=== PATIENT | female | born 1940 | race Caucasian/White ===

== ENCOUNTER 2019-04-02 20:09 | Emergency (ER) | payer MEDICARE ==
[2019-04-02] MEDS ORDERED: Ativan 2 MG/1 ML VIAL ONE (20:57)
[2019-04-02 21:24] LABS: Appearance TURBID (CLEAR); Bacteria MANY /HPF (NEGATIVE); Bilirubin NEGATIVE (NEGATIVE); Blood MODERATE Ery/ul (0-5); Glucose NEGATIVE (NEGATIVE); Ketones NEGATIVE (NEGATIVE); Leukocyte Esterase MODERATE (NEGATIVE); Mucus SLIGHT /HPF (NEGATIVE); Nitrite POSITIVE (NEGATIVE); Non-Squamous Epithelial Cells RARE /HPF (FEW); Protein,Urine Dip 30 (Negative); RBC 26-50 /HPF (0-2); Specific Gravity 1.015 (1.005-1.025); Urobilinogen NEGATIVE mg/dL (0-1); WBC >100 /HPF (0-5)
[2019-04-02 21:42] LABS: BASOPHIL % 0.4 % (0.0-0.4); Basophil (Absolute #) 0.04 (0-0.4); Eosinophil (Absolute #) 0.32 (0-0.5); Granulocytes % 79.7 % (36.0-66.0); Hematocrit 38.3 % (35-47); Hemoglobin 11.9 gm/dl (12.0-16.0); Lymphocyte (Absolute #) 1.12 (1.0-4.6); Lymphocytes % 10.5 % (24.0-44.0); Mean Cell Volume 93.9 fl (78-100); Mean Corpuscular Hgb Concent. 31.1 g/dl (32-36); Mean Platelet Volume 9.2 fl (6-9.5); Monocyte (Absolute #) 0.68 (0.0-1.3); Monocytes % 6.4 % (0.0-12.0); Platelet Count 302 K/mm3 (150-450); Red Blood Count 4.08 M/mm3 (4.1-5.4); Red Cell Distribution Width 18.6 % (11.5-14.0); White Blood Count 10.7 K/mm3 (4.0-10.5)
[2019-04-02 21:43] LABS: Mean Corpuscular Hemoglobin 29.1 pg (26-32)
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
[2019-04-02 21:52] LABS: ALBUMIN 3.6 g/dL (3.5-5.0); ALKALINE PHOSPHATASE 103 U/L (38-126); ANION GAP 12.2 MEQ/L (5-15); BLOOD UREA NITROGEN 19 mg/dL (7-17); CHLORIDE 104 mmol/L (98-107); Carbon Dioxide 27 mmol/L (22-30); Creatinine 1 0.93 mg/dL (0.52-1.04); Glucose 146 mg/dL (74-106); Potassium 3.9 mmol/L (3.5-5.1); SGOT/AST 11 U/L (14-36); SGPT/ALT 11 U/L (0-35); SODIUM 140 mmol/L (137-145); Total Protein 7.5 g/dL (6.3-8.2)
[2019-04-02] MEDS ORDERED: ROCEPHIN 1 Gm-D5w 50 ml Bag** 1 G/50 ML IVPB IV ONE (23:06)
[2019-04-02] MEDS: ROCEPHIN 1 Gm-D5w 50 ml Bag** 1 G/50 ML IVPB IV STA (23:10)
[2019-04-02] MEDS: Ativan 2 MG/1 ML VIAL IV ONE (23:10)
[2019-04-03 02:47] VITALS: BP 122/73; O2SAT 99
[2019-04-03 02:48] VITALS: PULSE 105
--- NOTE | 2019-04-03 09:15 | XRAY ---
Indication: Seizure. Possible stroke. Multiple contiguous axial images obtained through the head without contrast. Comparison: None Several images especially through the base of the brain degraded by motion artifact. Age-appropriate global atrophy and degenerative micro-ischemia. There are large multifocal old cerebral infarcts, left greater than right. No acute intracranial hemorrhage, mass effect, or hydrocephalus. Bony calvarium demonstrates previous right temporoparietal craniotomy. Visualized paranasal sinuses and mastoid air cells are clear. Impression: 1. Motion artifact. 2. Atrophy, degenerative micro-ischemia, and multifocal cerebral infarcts. Outside comparison studies would be of benefit if available. 3. No gross acute intracranial abnormalities. CTDI 65.91
--- NOTE | 2019-04-03 09:23 | XRAY ---
Indication: Abdomen pain. Multiple contiguous axial images obtained through the abdomen and pelvis without contrast as ordered. Comparison: None Lung bases/upper abdomen is slightly degraded by respiration artifact. Lung bases demonstrates mild scattered subsegmental atelectasis/scarring. No consolidation or effusion. Heart is enlarged with small pericardial effusion. Small hiatal hernia. Stomach is distended with food/fluid. Noncontrasted stomach and bowel loops appear nonobstructed. Normal appendix. Mild diffuse scattered colonic fecal debris throughout including large rectal impaction. Scattered colonic diverticulosis, greatest in the descending and sigmoid. Urinary bladder is empty with Anguiano balloon catheter in situ. Left kidney is moderately hydronephrotic with focus of UPJ stricture/tiny calcification. There are multiple bilateral renal cysts, largest right midpole measuring 1.8 cm. Also a few bilateral renal micro-calculi, largest left upper pole measuring 4 mm. Previous reported cholecystectomy and hysterectomy. No free fluid/air. Incidental 2.7 cm left adrenal adenoma. Remaining liver, pancreas, spleen, adrenal gland, kidneys, ureters, and bladder are unremarkable for noncontrast exam. Mild scattered aortoiliac calcifications without AAA. Osseous structures intact with mild osteopenia and mild/moderate multilevel thoracolumbar degenerative spondylosis. Impression: 1. Fecal stasis with rectal impaction. Also diffuse colonic diverticulosis without diverticulitis. 2. Hydronephrotic left kidney with UPJ stricture/tiny calcification. Also bilateral renal cysts/micro-calculi and Anguiano catheter in situ. 3. Incidental small hiatal hernia, left adrenal adenoma, and cardiomegaly with pericardial effusion. Comment: Preliminary interpretation was made by [facility]. No critical discrepancy. CT DI 22.28
== END 2019-04-03 02:32 | disposition home or self-care (01) ==
LOC: ED 20:09
DX: G40.909 Epilepsy, unspecified, not intractable, without status epilepticus (principal); N39.0 Urinary tract infection, site not specified; N13.30 Unspecified hydronephrosis; E11.9 Type 2 diabetes mellitus without complications; E05.90 Thyrotoxicosis, unspecified without thyrotoxic crisis or storm; J44.9 Chronic obstructive pulmonary disease, unspecified
CPT/HCPCS: 36000; 36415; 70450; 74176; 80053; 81001; 85025; 87040; 87077; 87086; 87186; 93005; 96365; 96374; 99284; J0696; J2060

== ENCOUNTER 2019-12-25 13:08 | Emergency (ER) | payer MEDICARE ==
[2019-12-25] MEDS ORDERED: Pepcid 20 MG VIAL IV ONE ×2 (13:11→13:23)
--- NOTE | 2019-12-25 13:20 | ERPHSYRPT ---
- History of Present Illness Time Seen by Provider: 12/25/19 13:10 Source: patient, EMS, care home records Exam Limitations: clinical condition Physician History: Patient is here with altered mental status from a care home. Patient is confused, opens eyes to verbal stimuli only. Intermittently follows directions. Per the care home, patient more confused over the past few days. Had a seizure 4 days ago. She has been on Keppra since that time. The care home feels that she has never returned to her baseline. Per them, they did a in-house hemoglobin at the care home. This returned with a hemoglobin of 5. Patient hypotensive upon arrival to the emergency department. They are unaware of any falls, this is a new seizure history. Patient does have a history of a CVA with continued deficit. Location: Generalized Quality: Infusion, low hemoglobin Radiation: None Severity: moderate Duration: 4 days Timing: occurred after seizure 4 days ago Modifying factors/associated signs and symptoms: started on Keppra recently Timing/Duration: today Severity: moderate Allergies/Adverse Reactions: Penicillins Allergy (Verified 04/02/19 21:45) Sulfa (Sulfonamide Antibiotics) Allergy (Verified 04/02/19 21:45) Home Medications: Acetaminophen 325 mg [Tylenol 325 mg] 2 tab PO BID PRN 12/25/19 [History] Allopurinol 100 mg [Zyloprim 100 mg] 1 tab PO BID 12/25/19 [History] Apixaban [Eliquis] 1 tab PO BID 12/25/19 [History] Aspirin 81 gm Chew [Baby Aspirin 81 mg Chew] 12/25/19 [History] Aspirin 81 gm Chew [Baby Aspirin 81 mg Chew] 1 tab PO DAILY 12/25/19 [ History] Carvedilol 12.5 mg [Coreg 12.5 mg] 1 tab PO BID 12/25/19 [History] Clonidine HCl 1 tab PO DAILY 12/25/19 [History] Fluoxetine HCl 20 mg [Prozac 20 MG] 20 mg PO DAILY 12/25/19 [History] HydrALAzine HCL 25 MG TAB [Apresoline 25 MG TABLET] 1 tab PO BID 12/25/19 [History] Levetiracetam 250 MG [Keppra 250 MG] 1 tab PO BID 12/25/19 [History] Levothyroxine Sodium 100 Mcg [Synthroid 100 Mcg] 100 mcg PO DAILY 12/25/19 [History] Lorazepam [Ativan] 0.5 mg PO TID 12/25/19 [History] Losartan Potassium 50 mg [Cozaar 50 MG] 50 mg PO DAILY 12/25/19 [History] Omeprazole Magnesium [Prilosec Otc] 1 cap PO DAILY 12/25/19 [History] Paliperidone [Paliperidone ER] 1 tab PO DAILY 12/25/19 [History] Polyethylene Glycol 3350 [Glycolax] 17 gr PO DAILY 12/25/19 [History] Rivastigmine 9.5 mg TD DAILY 12/25/19 [History] Sitagliptin Phosphate [Januvia] 25 mg PO DAILY 12/25/19 [History] Trazodone HCl 100 mg PO HS 12/25/19 [History] cloNIDine HCL [Clonidine HCl] 1 tab PO HS 12/25/19 [History] - Review of Systems Constitutional: Other (Possibly low hemoglobin, more pale), No Fever, No Chills Eyes: No Symptoms Ears, Nose, & Throat: No Symptoms Respiratory: No Cough, No Dyspnea Cardiac: No Chest Pain, No Edema, No Syncope Abdominal/Gastrointestinal: No Abdominal Pain, No Nausea, No Vomiting, No Diarrhea Genitourinary Symptoms: No Dysuria Musculoskeletal: No Back Pain, No Neck Pain Skin: No Rash Neurological: Other (Generalized confusion), No Dizziness, No Focal Weakness, No Sensory Changes Psychological: No Symptoms Endocrine: No Symptoms All Other Systems: Reviewed and Negative - Past Medical History Pertinent Past Medical History: Yes Neurological History: Seizures, Stroke ENT History: No Pertinent History Cardiac History: Arrhythmia, Other Respiratory History: COPD Endocrine Medical History: Diabetes Type II, Hyperthyroidism Musculoskeletal History: Arthritis GI Medical History: Gallbladder Disease History: No Pertinent History Psycho-Social History: Anxiety, Depression, Panic Disorder Female Reproductive Disorders: Endometriosis, Fibroids Other Medical History: GOUT - Past Surgical History Past Surgical History: Yes Neuro Surgical History: Other Cardiac: No Pertinent History Respiratory: No Pertinent History Gastrointestinal: Cholecystectomy Genitourinary: Other Musculoskeletal: No Pertinent History Female Surgical History: Hysterectomy Other Surgical History: kidney stones with nephrostomy tube placement, lithotripsy, craniotomy due to subdural hematoma. - Social History Smoking Status: Former smoker Drug Use: none - Nursing Vital Signs Nursing Vital Signs: Initial Vital Signs Temperature 97.0 F 12/25/19 13:26 Pulse Rate 84 12/25/19 13:26 Respiratory Rate 14 12/25/19 13:26 Blood Pressure 84/58 12/25/19 13:26 O2 Sat by Pulse Oximetry 96 12/25/19 13:26 - Physical Exam General Appearance: no apparent distress, alert Eye Exam: PERRL/EOMI, eyes nml inspection Ears, Nose, Throat Exam: normal ENT inspection, TMs normal, pharynx normal, moist mucous membranes Neck Exam: normal inspection, non-tender, supple, full range of motion Respiratory Exam: normal breath sounds, lungs clear, No respiratory distress Cardiovascular Exam: regular rate/rhythm, normal heart sounds, normal peripheral pulses Gastrointestinal/Abdomen Exam: soft, normal bowel sounds, No tenderness, No mass Back Exam: normal inspection, normal range of motion, No CVA tenderness, No vertebral tenderness Extremity Exam: normal inspection, normal range of motion, pelvis stable Neurologic Exam: alert, No motor deficits Skin Exam: normal color, warm, dry, No rash Lymphatic Exam: No adenopathy SpO2 Interpretation: normal Comments: 12/25/19 13:21 Patient is confused on exam. Opens eyes only to voice. Otherwise they are closed. Patient does appear pale. Neurological exam: Patient is moving all 4 extremities. Is unclear where her previous deficit is from. I did do a rectal exam. This demonstrated no gross blood. No bright red blood. No abdominal tenderness, rebound, guarding. Patient intermittently is following direction. - Course Nursing assessment & vital signs reviewed: Yes Ordered Tests: Active Orders 24 hr Category Date Time Status Supervisor Locomotive STAT Care 12/25/19 13:12 Active Anguiano [Catheter-[place] Anguiano] STAT Care 12/25/19 13:23 Active IV Insertion STAT Care 12/25/19 13:11 Active IV Insertion-2nd Peripheral STAT Care 12/25/19 13:11 Active Pulse Oximetry (ED) STAT Care 12/25/19 13:11 Active CHEST 1 VIEW (PORTABLE) Stat Exams 12/25/19 13:12 Completed BLOOD CULTURE Stat Lab 12/25/19 13:50 Received CBC W DIFF Stat Lab 12/25/19 13:11 Completed CMP Stat Lab 12/25/19 13:10 Completed CULTURE,URINE Stat Lab 12/25/19 13:00 Received CULTURE,URINE Stat Lab 12/25/19 13:22 Ordered Lactic Acid Stat Lab 12/25/19 13:40 Completed Occult Blood, Other Screening Stat Lab 12/25/19 13:00 Completed PROTIME WITH INR Stat Lab 12/25/19 13:10 Completed PTT Stat Lab 12/25/19 13:10 Completed TROPONIN Q3H Lab 12/25/19 13:10 Completed TROPONIN Q3H Lab 12/25/19 16:15 Ordered TROPONIN Q3H Lab 12/25/19 19:15 Ordered TROPONIN Q3H Lab 12/25/19 22:15 Ordered UA W/RFX UR CULTURE Stat Lab 12/25/19 13:00 Completed EKG STAT RT 12/25/19 13:20 Active Medication Summary Generic Name Dose Route Start Last Admin Trade Name Freq PRN Reason Stop Dose Admin Sodium Chloride 1,000 mls @ 100 mls/hr 12/25/19 14:00 Sodium Chloride 0.9% 1000 Ml IV 01/24/20 13:59 .Q10H ELIZABETH Discontinued Medications Generic Name Dose Route Start Last Admin Trade Name Freq PRN Reason Stop Dose Admin Famotidine 20 mg 12/25/19 13:11 12/25/19 13:25 Pepcid 20 Mg Vial IV 12/25/19 13:12 20 mg STAT ONE Administration Famotidine Confirm 12/25/19 13:23 Pepcid 20 Mg Vial Administered 12/25/19 13:24 Dose 20 mg IV .STK-MED ONE Sodium Chloride 1,000 mls @ 999 mls/hr 12/25/19 13:11 12/25/19 14:17 Sodium Chloride 0.9% 1000 Ml IV 12/25/19 14:11 999 mls/hr .Q1H1M STA Administration Sodium Chloride Confirm 12/25/19 13:23 Sodium Chloride 0.9% 1000 Ml Administered 12/25/19 13:24 Dose 1,000 mls @ ud .ROUTE .STK-MED ONE Lab/Rad Data: Laboratory Result Diagrams 12/25/19 13:11 12/25/19 13:10 Laboratory Results 04/24/20 04/24/20 04/24/20 Range/Units 13:40 13:11 13:10 WBC 7.9 (4.0-10.5) K/mm3 RBC 2.94 L (4.1-5.4) M/mm3 Hgb 6.0 L* (12.0-16.0) gm/dl Hct 24.5 L (35-47) % MCV 83.3 (78-100) fl MCH 20.4 L (26-32) pg MCHC 24.5 L (32-36) g/dl RDW 21.7 H (11.5-14.0) % Plt Count 428 (150-450) K/mm3 MPV 8.3 (7.5-11.0) fl Gran % 68.6 H (36.0-66.0) % Eos # (Auto) 0.17 (0-0.5) Absolute Lymphs (auto) 1.58 (1.0-4.6) Absolute Monos (auto) 0.67 (0.0-1.3) Lymphocytes % 20.1 L (24.0-44.0) % Monocytes % 8.5 (0.0-12.0) % Eosinophils % 2.2 (0.00-5.0) % Basophils % 0.6 (0.0-0.4) % Absolute Granulocytes 5.39 (1.4-6.9) Basophils # 0.05 (0-0.4) PT (9.95-12.35) SECONDS INR (0.8-3.0) APTT (25.3-37.0) SECONDS Sodium (137-145) mmol/L Potassium (3.5-5.1) mmol/L Chloride (98-107) mmol/L Carbon Dioxide (22-30) mmol/L Anion Gap (5-15) MEQ/L BUN (7-17) mg/dL Creatinine (0.52-1.04) mg/dL Estimated GFR ML/MIN Glucose (74-106) mg/dL Lactic Acid 1.0 (0.4-2.0) Calcium (8.4-10.2) mg/dL Total Bilirubin (0.2-1.3) mg/dL AST (14-36) U/L ALT (0-35) U/L Alkaline Phosphatase (38-126) U/L Troponin I < 0.012 (0.000-0.034) ng/mL Serum Total Protein (6.3-8.2) g/dL Albumin (3.5-5.0) g/dL Urine Color (YELLOW) Urine Appearance (CLEAR) Urine pH (5-6) Ur Specific [place] (1.005-1.025) Urine Protein (Negative) Urine Ketones (NEGATIVE) Urine Blood (0-5) Sajan/ul Urine Nitrite (NEGATIVE) Urine Bilirubin (NEGATIVE) Urine Urobilinogen (0-1) mg/dL Ur Leukocyte Esterase (NEGATIVE) Urine WBC (Auto) (0-5) /HPF Urine RBC (Auto) (0-2) /HPF U Epithel Cells (Auto) (FEW) /HPF Urine Bacteria (Auto) (NEGATIVE) /HPF Urine Mucus (Auto) (NEGATIVE) /HPF Urine Culture Reflexed (NO) Urine Glucose (NEGATIVE) mg/dL Stool Occult Blood (Negative) 12/25/19 12/25/19 12/25/19 Range/Units 13:10 13:10 13:00 WBC (4.0-10.5) K/mm3 RBC (4.1-5.4) M/mm3 Hgb (12.0-16.0) gm/dl Hct (35-47) % MCV (78-100) fl MCH (26-32) pg MCHC (32-36) g/dl RDW (11.5-14.0) % Plt Count (150-450) K/mm3 MPV (7.5-11.0) fl Gran % (36.0-66.0) % Eos # (Auto) (0-0.5) Absolute Lymphs (auto) (1.0-4.6) Absolute Monos (auto) (0.0-1.3) Lymphocytes % (24.0-44.0) % Monocytes % (0.0-12.0) % Eosinophils % (0.00-5.0) % Basophils % (0.0-0.4) % Absolute Granulocytes (1.4-6.9) Basophils # (0-0.4) PT 26.0 H (9.95-12.35) SECONDS INR 2.26 (0.8-3.0) APTT 34.5 (25.3-37.0) SECONDS Sodium 140 (137-145) mmol/L Potassium 3.7 (3.5-5.1) mmol/L Chloride 106 (98-107) mmol/L Carbon Dioxide 27 (22-30) mmol/L Anion Gap 10.5 (5-15) MEQ/L BUN 15 (7-17) mg/dL Creatinine 0.59 (0.52-1.04) mg/dL Estimated GFR > 60.0 ML/MIN Glucose 102 (74-106) mg/dL Lactic Acid (0.4-2.0) Calcium 8.5 (8.4-10.2) mg/dL Total Bilirubin 0.60 (0.2-1.3) mg/dL AST 18 (14-36) U/L ALT 9 (0-35) U/L Alkaline Phosphatase 91 (38-126) U/L Troponin I (0.000-0.034) ng/mL Serum Total Protein 6.3 (6.3-8.2) g/dL Albumin 3.0 L (3.5-5.0) g/dL Urine Color YELLOW (YELLOW) Urine Appearance CLOUDY (CLEAR) Urine pH 7.0 (5-6) Ur Specific [place] 1.012 (1.005-1.025) Urine Protein NEGATIVE (Negative) Urine Ketones NEGATIVE (NEGATIVE) Urine Blood NEGATIVE (0-5) Sajan/ul Urine Nitrite NEGATIVE (NEGATIVE) Urine Bilirubin NEGATIVE (NEGATIVE) Urine Urobilinogen 4 (0-1) mg/dL Ur Leukocyte Esterase LARGE (NEGATIVE) Urine WBC (Auto) >100 (0-5) /HPF Urine RBC (Auto) 6-10 (0-2) /HPF U Epithel Cells (Auto) RARE (FEW) /HPF Urine Bacteria (Auto) MANY (NEGATIVE) /HPF Urine Mucus (Auto) SLIGHT (NEGATIVE) /HPF Urine Culture Reflexed ORDERED SEPARATELY (NO) Urine Glucose NEGATIVE (NEGATIVE) mg/dL Stool Occult Blood (Negative) 12/25/19 Range/Units 13:00 WBC (4.0-10.5) K/mm3 RBC (4.1-5.4) M/mm3 Hgb (12.0-16.0) gm/dl Hct (35-47) % MCV (78-100) fl MCH (26-32) pg MCHC (32-36) g/dl RDW (11.5-14.0) % Plt Count (150-450) K/mm3 MPV (7.5-11.0) fl Gran % (36.0-66.0) % Eos # (Auto) (0-0.5) Absolute Lymphs (auto) (1.0-4.6) Absolute Monos (auto) (0.0-1.3) Lymphocytes % (24.0-44.0) % Monocytes % (0.0-12.0) % Eosinophils % (0.00-5.0) % Basophils % (0.0-0.4) % Absolute Granulocytes (1.4-6.9) Basophils # (0-0.4) PT (9.95-12.35) SECONDS INR (0.8-3.0) APTT (25.3-37.0) SECONDS Sodium (137-145) mmol/L Potassium (3.5-5.1) mmol/L Chloride (98-107) mmol/L Carbon Dioxide (22-30) mmol/L Anion Gap (5-15) MEQ/L BUN (7-17) mg/dL Creatinine (0.52-1.04) mg/dL Estimated GFR ML/MIN Glucose (74-106) mg/dL Lactic Acid (0.4-2.0) Calcium (8.4-10.2) mg/dL Total Bilirubin (0.2-1.3) mg/dL AST (14-36) U/L ALT (0-35) U/L Alkaline Phosphatase (38-126) U/L Troponin I (0.000-0.034) ng/mL Serum Total Protein (6.3-8.2) g/dL Albumin (3.5-5.0) g/dL Urine Color (YELLOW) Urine Appearance (CLEAR) Urine pH (5-6) Ur Specific [place] (1.005-1.025) Urine Protein (Negative) Urine Ketones (NEGATIVE) Urine Blood (0-5) Sajan/ul Urine Nitrite (NEGATIVE) Urine Bilirubin (NEGATIVE) Urine Urobilinogen (0-1) mg/dL Ur Leukocyte Esterase (NEGATIVE) Urine WBC (Auto) (0-5) /HPF Urine RBC (Auto) (0-2) /HPF U Epithel Cells (Auto) (FEW) /HPF Urine Bacteria (Auto) (NEGATIVE) /HPF Urine Mucus (Auto) (NEGATIVE) /HPF Urine Culture Reflexed (NO) Urine Glucose (NEGATIVE) mg/dL Stool Occult Blood POSITIVE A (Negative) - Progress Progress: improved Progress Note: 12/25/19 13:22 There is a wide differential diagnosis including upper or lower GI bleed, anemia of chronic disease, Keppra overdose, STEMI, infection, pneumonia, influenza, head bleed. - We'll obtain basic labs, fluids, EKG, troponin, chest x-ray, type and screen, blood transfusion - I feel comfortable with one time negative troponin given symptoms have improved and started greater then 6 hours ago. - EKG shows no ST changes - my read. See full read below. - O2 saturations consistently greater than 95%. - CXR shows no pneumonia, pneumothorax - my read ED critical care statement As staff physician, I have provided critical care. Time: 60 mins Criteria for critical illness: Lower GI bleed, hypotension requiring blood transfusion, hemoglobin less than 7 requiring blood transfusion Treatment and management provided include: Coordination of management with ETC care team, consultants, and inpatient care team. [id number] assessment of condition and response to therapy. Review and interpretation of emergent diagnostic testing. Medical chart review and completion. Direction and immediate supervision of the following therapy: Critical care was time spent personally by me on the following activities: blood draw for specimens, development of treatment plan with patient or surrogate, discussions with consultants, discussions with primary provider, interpretation of cardiac output measurements, evaluation of patient' s response to treatment, examination of patient, obtaining history from patient or surrogate, ordering and performing treatments and interventions, ordering and review of laboratory studies, ordering and review of radiographic studies, pulse oximetry, re-evaluation of patient's condition and review of old charts. This time was independent of all procedures performed. Denis Koenig 12/25/19 14:23 Patient found to have a hemoglobin of 6.0. Hypotension, therefore we will give rapid O- blood. No other obvious source of blood outside of lower GI. Patient is on Eliquis for her A. fib. Patient will need to be transferred emergently to [facility] for GI work-up and possible scope given her tenuous hemodynamic status. I did discuss over the phone with on-call physician, Dr. Yeboah. He is the ER physician. Accepted the patient for ER to ER transfer. Patient transferred without difficulty. Counseled pt/family regarding: lab results, diagnosis - Departure Departure Disposition: Home, Transfer Clinical Impression: Lower GI bleed, Hypotension, Anemia due to acute blood loss Condition: Stable Critical Care Time: Yes Critical Care Time(excluding separately billable procedures): Critical 30-74 mins Referrals: FERNANDO CARRASQUILLO [Primary Care Provider] -
[2019-12-25] MEDS ORDERED: Sodium Chloride 0.9% 1000 ML 1,000 ML ONE ×2 (13:23→13:58)
[2019-12-25] MEDS: Sodium Chloride 0.9% 1000 ML 1,000 ML IV STA ×3 (13:25→14:17)
--- NOTE | 2019-12-25 13:39 | XRAY ---
Indication: Unresponsive. Lethargy. Comparison: None Portable chest slightly underinflated with minimal bibasilar infiltrates/atelectasis and cardiomegaly. Bony thorax intact with mild osteopenia and degenerative changes.
[2019-12-25 13:40] LABS: Absolute Neutrophil Ct (ANC) 5.39 (1.4-6.9); BASOPHIL % 0.6 % (0.0-0.4); Basophil (Absolute #) 0.05 (0-0.4); Eosinophil % 2.2 % (0.00-5.0); Eosinophil (Absolute #) 0.17 (0-0.5); Hematocrit 24.5 % (35-47); Lymphocyte (Absolute #) 1.58 (1.0-4.6); Lymphocytes % 20.1 % (24.0-44.0); Mean Cell Volume 83.3 fl (78-100); Mean Corpuscular Hemoglobin 20.4 pg (26-32); Mean Corpuscular Hgb Concent. 24.5 g/dl (32-36); Mean Platelet Volume 8.3 fl (7.5-11.0); Monocyte (Absolute #) 0.67 (0.0-1.3); Monocytes % 8.5 % (0.0-12.0); Neutrophil % 68.6 % (36.0-66.0); Platelet Count 428 K/mm3 (150-450); Red Blood Count 2.94 M/mm3 (4.1-5.4); Red Cell Distribution Width 21.7 % (11.5-14.0); White Blood Count 7.9 K/mm3 (4.0-10.5)
[2019-12-25 13:53] LABS: INR 2.26 (0.8-3.0)
[2019-12-25 13:53] LABS: Appearance CLOUDY (CLEAR); Bacteria MANY /HPF (NEGATIVE); Bilirubin NEGATIVE (NEGATIVE); Blood NEGATIVE Ery/ul (0-5); Epithelial Cells RARE /HPF (FEW); Glucose NEGATIVE (NEGATIVE); Ketones NEGATIVE (NEGATIVE); Leukocyte Esterase LARGE (NEGATIVE); Mucus SLIGHT /HPF (NEGATIVE); Nitrite NEGATIVE (NEGATIVE); Protein,Urine Dip NEGATIVE (Negative); Specific Gravity 1.012 (1.005-1.025); Urobilinogen 4 mg/dL (0-1); WBC >100 /HPF (0-5)
[2019-12-25 13:56] LABS: PTT 34.5 SECONDS (25.3-37.0)
[2019-12-25] MEDS ORDERED: Sodium Chloride 0.9% 1000 ML 1,000 ML IV SCH (14:00)
[2019-12-25 14:01] LABS: ALKALINE PHOSPHATASE 91 U/L (38-126); ANION GAP 10.5 MEQ/L (5-15); BLOOD UREA NITROGEN 15 mg/dL (7-17); CHLORIDE 106 mmol/L (98-107); Calcium 8.5 mg/dL (8.4-10.2); Carbon Dioxide 27 mmol/L (22-30); Creatinine 1 0.59 mg/dL (0.52-1.04); Glucose 102 mg/dL (74-106); Potassium 3.7 mmol/L (3.5-5.1); SGOT/AST 18 U/L (14-36); SGPT/ALT 9 U/L (0-35); SODIUM 140 mmol/L (137-145); Total Protein 6.3 g/dL (6.3-8.2)
[2019-12-25 14:34] VITALS: BP 90/51; PULSE 76; O2SAT 99
[2019-12-25 14:52] LABS: ABO TYPING O; Antibody Screen NEGATIVE (NEGATIVE); RH TYPING POSITIVE
[2019-12-25 15:00] LABS: CROSS MATCH (PRBC) COMPATIBLE (COMPATIBLE)
== END 2019-12-25 14:45 | disposition short-term general hospital (02) ==
LOC: ED 13:08
DX: K92.2 Gastrointestinal hemorrhage, unspecified (principal); I95.9 Hypotension, unspecified; D62 Acute posthemorrhagic anemia; I48.91 Unspecified atrial fibrillation; Z79.01 Long term (current) use of anticoagulants; Z79.899 Other long term (current) drug therapy; G40.909 Epilepsy, unspecified, not intractable, without status epilepticus; Z86.73 Personal history of transient ischemic attack (TIA), and cerebral infarction without residual deficits
CPT/HCPCS: 36000; 36415; 51702; 71045; 80053; 81001; 82272; 83605; 84484; 85025; 85610; 85730; 86850; 86900; 86901; 86922; 87040; 87077; 87086; 87186; 93041; 94760; 96374; 99285; 99291; P9016; 36430; 80048; 85027; 96360; 96361; P9603